=== PATIENT | female | born 1995 | race Caucasian/White ===

== ENCOUNTER → 2016-11-19 | Outpatient (CLI) | payer MEDICAID, OTHER ==
[~2016-11-19] MED LIST: PREN-53 PO
--- NOTE | 2016-11-19 13:47 | Diagnostic Imaging Report ---
EXAMINATION: OB ultrasound. INDICATION: survey. FINDINGS: The heart rate is 152 beats per minute. The placenta is posterior. There is no placenta previa. The posterior fossa appear unremarkable. No ventriculomegaly. The four-chamber view, the cord insertion, the bladder, two umbilical arteries, and the kidneys appear unremarkable. The spine is not well seen. The stomach is not well seen due to position. The growth parameters are all around 20 weeks and 5 days. This is compatible with gestational age of 21 weeks and 1 day based on the first trimester ultrasound dating. IMPRESSION: Followup study within 2-3 weeks is recommended to reevaluate stomach and spine, not well seen due to position. Dictated by: Dictated on workstation # [id number]
== END ==
LOC: RAD 10:40
PROVIDERS: ATTEND Family Medicine
DX: Z34.02 Encounter for supervision of normal first pregnancy, second trimester (principal)
CPT/HCPCS: 76805

== ENCOUNTER → 2016-12-16 | Outpatient (CLI) | payer MEDICAID ==
--- OUTSIDE RECORDS SUMMARY | 2016-12-16 11:15 | XMS REPORT | Continuity of Care Document ---
Author Author [facility] Address Unknown Phone Unavailable Allergies Active Description Code Type Severity Reaction Onset Reported/Identified Relationship to Patient Clinical Status Yes No Known Drug Allergies [id number] Drug Allergy Unknown N/ A 07/24/2015 Medications Problems Date Dx Coded Attending Type Code Diagnosis Diagnosed By 01/16/2015 STU GODINEZ DO 300.4 DYSTHYMIC DISORDER 07/24/2015 NELSON MAY DO Ot Z03.89 ENCNTR FOR OBS FOR OTH SUSPECTED DISEASE 09/05/2016 KIM NAVARRO MD Ot Z34.91 ENCNTR FOR SUPRVSN OF NORMAL PREG, UNSP, 09/05/2016 KIM NAVARRO MD Ot Z3A.09 9 WEEKS GESTATION OF 09/06/2016 NELSON MAY DO Ot Z03.89 ENCNTR FOR OBS FOR OTH SUSPECTED DISEASE 11/19/2016 KIM NAVARRO MD Ot Z34.91 ENCNTR FOR SUPRVSN OF NORMAL PREG, UNSP, 11/19/2016 KIM NAVARRO MD Ot Z3A.09 9 WEEKS GESTATION OF 11/19/2016 KIM NAVARRO MD Ot Z34.91 ENCNTR FOR SUPRVSN OF NORMAL PREG, UNSP, 11/19/2016 KIM NAVARRO MD Ot Z3A.09 9 WEEKS GESTATION OF 11/20/2016 KIM NAVARRO MD Ot Z34.02 ENCNTR FOR SUPRVSN OF NORMAL FIRST PREG, Procedures Results Encounters ACCT No. Visit Date/Time Discharge Status Pt. Type Provider Facility Loc./Unit Complaint [id number] 01/16/2015 15:27:00 01/16/2015 23: 59:59 CLS Outpatient STU GODINEZ DO
--- NOTE | 2016-12-16 15:28 | Diagnostic Imaging Report ---
EXAMINATION: OB ultrasound followup. INDICATION: Followup spine and stomach. FINDINGS: The heart rate is 179 beats per minute. The cervix is 3.7 cm in length and is closed. The spine is seen at this time and appears within normal limits. The stomach appears within normal limits. IMPRESSION: Completed survey. Dictated by: Dictated on workstation # [id number]
== END ==
LOC: RAD 11:12
PROVIDERS: ATTEND Family Medicine
DX: Z34.02 Encounter for supervision of normal first pregnancy, second trimester (principal)
CPT/HCPCS: 76816

== ENCOUNTER 2017-01-11 19:26 | Outpatient (CLI) | payer MEDICAID ==
[~2017-01-11] VITALS: Ht 165.1 cm; Wt 80.9 kg
[2017-01-11 19:47] VITALS: BP 128/78
[2017-01-11] MEDS ORDERED: PREN-53 PO (20:27)
--- NOTE | 2017-01-13 10:03 | Physician Query-Final Dx ---
TOBY RICHARD 01/13/17 1003: Clinic Account Progress/Dx Physician Query: Please give diagnosis Date of Service Jan 11, 2017 at 19:26 KIM NAVARRO MD 01/14/17 0924: Clinic Account Progress/Dx DIAGNOSIS: Diagnosis Decreased movement Third trimester Reactive NST TOBY RICHARD Jan 13, 2017 10:03 KIM NAVARRO MD Jan 14, 2017 09:24
== END 2017-01-11 20:35 | disposition home or self-care (01) ==
LOC: WSo 19:26 → LDRP 19:26 → WSo 20:35
PROVIDERS: ATTEND Family Medicine
DX: O36.8130 Decreased fetal movements, third trimester, not applicable or unspecified (principal); Z3A.28 28 weeks gestation of pregnancy
CPT/HCPCS: 99213

== ENCOUNTER 2017-02-17 19:44 | Outpatient (CLI) | payer MEDICAID ==
[~2017-02-17] VITALS: Ht 165.1 cm; Wt 86.2 kg
[2017-02-17 20:00] VITALS: BP 130/84
[2017-02-17] MEDS ORDERED: RANI25VI2 IJ (20:04)
[2017-02-17 20:15] LABS: BILIRUBIN,URINE NEGATIVE (NEGATIVE); KETONES,URINE NEGATIVE (NEGATIVE); LEUKOCYTE ESTERASE ,URINE 1+ (NEGATIVE); NITRITE,URINE NEGATIVE (NEGATIVE); PH,URINE 7 (5-9); PROTEIN,URINE NEGATIVE (NEGATIVE); UROBILINOGEN,URINE NORMAL (NORMAL)
[2017-02-17] MEDS ORDERED: ACETAMINOPHEN 500 MG TAB (TYLENOL) PO ONE (21:00)
--- NOTE | 2017-02-18 08:56 | Physician Query-Final Dx ---
CEM MILLS 02/18/17 0856: Clinic Account Progress/Dx Physician Query: Please give diagnosis Date of Service February 17, 2017 at 19:44 GRICELDA MERCEDES MD 02/20/17 2142: Clinic Account Progress/Dx DIAGNOSIS: Diagnosis Contractions CEM MILLS February 18, 2017 08:56 GRICELDA MERCEDES MD February 20, 2017 21:42
== END 2017-02-17 22:05 | disposition home or self-care (01) ==
LOC: LDRP 19:44 → WSo 19:44
PROVIDERS: ATTEND Family Medicine
DX: O60.03 Preterm labor without delivery, third trimester (principal); Z3A.34 34 weeks gestation of pregnancy
CPT/HCPCS: 81000; 87081; 99213

== ENCOUNTER 2017-03-06 23:31 | Outpatient (CLI) | payer MEDICAID ==
[~2017-03-06] VITALS: Ht 165.1 cm; Wt 87.7 kg
[~2017-03-06 23:31] MED LIST changes: +RANI25VI2 IJ
[2017-03-06 23:52] VITALS: BP 117/72
[2017-03-07] MEDS ORDERED: ACETAMINOPHEN 500 MG TAB (TYLENOL) ONE (02:12)
[2017-03-07] MEDS ORDERED: ACETAMINOPHEN 500 MG TAB (TYLENOL) PO PRN (02:30)
[2017-03-07 03:47] VITALS: BP 125/78
--- NOTE | 2017-03-07 15:40 | Physician Query-Final Dx ---
TOBY RICHARD 03/07/17 1540: Clinic Account Progress/Dx Physician Query: Please give diagnosis Date of Service Mar 06, 2017 at 23:31 KIM NAVARRO MD 03/07/17 2116: Clinic Account Progress/Dx DIAGNOSIS: Diagnosis 37 weeks gestation Contractions, no cervical change R/O rupture of membranes- amnioswab negative TOBY RICHARD Mar 07, 2017 15:40 KIM NAVARRO MD Mar 07, 2017 21:16
== END 2017-03-07 05:35 | disposition home or self-care (01) ==
LOC: WSo 23:31 → LDRP 23:32 → WSo 03-07 05:35
PROVIDERS: ATTEND Family Medicine
DX: O47.1 False labor at or after 37 completed weeks of gestation (principal); Z3A.37 37 weeks gestation of pregnancy
CPT/HCPCS: 99214

== ENCOUNTER 2017-03-11 13:08 | Outpatient (CLI) | payer MEDICAID ==
[~2017-03-11] VITALS: Ht 165.1 cm; Wt 86.6 kg
[2017-03-11 13:49] LABS: BILIRUBIN,URINE NEGATIVE (NEGATIVE); KETONES,URINE 3+ (NEGATIVE); LEUKOCYTE ESTERASE ,URINE 3+ (NEGATIVE); NITRITE,URINE NEGATIVE (NEGATIVE); PH,URINE 7 (5-9); PROTEIN,URINE 2+ (NEGATIVE); UROBILINOGEN,URINE NORMAL (NORMAL)
[2017-03-11 14:00] LABS: SQUAMOUS EPITHELIAL CELL,UR 25-50 /HPF; WBC,URINE 25-50 /HPF
[2017-03-11] MEDS ORDERED: FAMOTIDINE 20MG/2ML IV (PEPCID) IVP ONE (14:30)
[2017-03-11] MEDS ORDERED: NS IV 1000 ML 1,000 ML IV ONE (14:30)
[2017-03-11] MEDS ORDERED: ONDANSETRON 4 MG/2 ML (SDV) Z0FRAN IVP PRN (14:30)
[2017-03-11 14:58] LABS: BASOPHILS % (AUTO) 0 % (0-10); EOSINOPHILS % (AUTO) 0 % (0-10); LYMPHOCYTES # (AUTO) 1.1 X 10^3 (1.0-4.0); LYMPHOCYTES % (AUTO) 10 % (12-44); MEAN CORPUSCULAR HEMOGLOBIN 29 PG (25-34); MEAN CORPUSCULAR HGB CONC 32 G/DL (32-36); MEAN CORPUSCULAR VOLUME 90 FL (80-99); MEAN PLATELET VOLUME 10.3 FL (7.4-10.4); MONOCYTES # (AUTO) 0.9 X 10^3 (0.0-1.0); MONOCYTES % (AUTO) 8 % (0-12); NEUTROPHILS # (AUTO) 8.9 X 10^3 (1.8-7.8); NEUTROPHILS % (AUTO) 82 % (42-75); PLATELET COUNT 242 10^3/uL (130-400); RED BLOOD COUNT 3.52 10^6/uL (4.35-5.85); RED CELL DISTRIBUTION WIDTH 13.4 % (10.0-14.5); WHITE BLOOD COUNT 10.9 10^3/uL (4.3-11.0)
[2017-03-11 15:20] LABS: ALANINE AMINOTRANSFERASE 11 U/L (0-55); ALBUMIN 3.3 G/DL (3.2-4.5); ANION GAP 12 MMOL/L (5-14); ASPARTATE AMINO TRANSFERASE 12 U/L (5-34); BILIRUBIN,TOTAL 0.6 MG/DL (0.1-1.0); BLOOD UREA NITROGEN 9 MG/DL (7-18); BUN/CREATININE RATIO 14; CARBON DIOXIDE 21 MMOL/L (21-32); CHLORIDE 106 MMOL/L (98-107); CREATININE SERUM 0.63 MG/DL (0.60-1.30); GFR ESTIMATED > 60; GLUCOSE 83 MG/DL (70-105); POTASSIUM 3.6 MMOL/L (3.6-5.0); SODIUM 139 MMOL/L (135-145); TOTAL PROTEIN 6.3 G/DL (6.4-8.2)
--- NOTE | 2017-03-12 08:08 | Physician Query-Final Dx ---
TOBY RICHARD 03/12/17 0808: Clinic Account Progress/Dx Physician Query: Please give diagnosis Date of Service Mar 11, 2017 at 13:08 KIM NAVARRO MD 03/12/17 0922: Clinic Account Progress/Dx DIAGNOSIS: Diagnosis Gastroenteritis Term intrauterine at 37 weeks TOBY RICHARD Mar 12, 2017 08:08 KIM NAVARRO MD Mar 12, 2017 09:22
== END 2017-03-11 16:24 | disposition home or self-care (01) ==
LOC: LDRP 13:08 → WSo 13:08
PROVIDERS: ATTEND Family Medicine
DX: O99.89 Other specified diseases and conditions complicating pregnancy, childbirth and the puerperium (principal); K52.9 Noninfective gastroenteritis and colitis, unspecified; Z3A.37 37 weeks gestation of pregnancy
CPT/HCPCS: 36415; 80053; 81000; 85025; 87088; 96361; 96374; 96375; 99213

== ENCOUNTER 2017-03-31 19:31 | Inpatient (IN) | payer MEDICAID ==
[~2017-03-31] VITALS: Ht 165.1 cm; Wt 88.9 kg
[2017-03-31] MEDS ORDERED: LACTATED RINGERS 1,000 ML IV ONE (19:54)
[2017-03-31] MEDS ORDERED: LACTATED RINGERS 1,000 ML IV SCH (19:55)
[2017-03-31 19:58] LABS: BASOPHILS % (AUTO) 0 % (0-10); EOSINOPHILS # (AUTO) 0.1 10^3/uL (0.0-0.3); EOSINOPHILS % (AUTO) 1 % (0-10); LYMPHOCYTES # (AUTO) 2.2 X 10^3 (1.0-4.0); LYMPHOCYTES % (AUTO) 18 % (12-44); MEAN CORPUSCULAR HEMOGLOBIN 28 PG (25-34); MEAN CORPUSCULAR HGB CONC 33 G/DL (32-36); MEAN CORPUSCULAR VOLUME 86 FL (80-99); MEAN PLATELET VOLUME 10.5 FL (7.4-10.4); MONOCYTES % (AUTO) 8 % (0-12); NEUTROPHILS % (AUTO) 73 % (42-75); PLATELET COUNT 261 10^3/uL (130-400); RED BLOOD COUNT 3.53 10^6/uL (4.35-5.85); RED CELL DISTRIBUTION WIDTH 14.3 % (10.0-14.5); WHITE BLOOD COUNT 12.3 10^3/uL (4.3-11.0)
[2017-03-31] MEDS ORDERED: MINERAL OIL CONCENTRATE 99.9% 15 ML UDC TOP PRN (20:00)
[2017-03-31 20:03] VITALS: BP 139/88
[2017-03-31] MEDS ORDERED: RANI150T15 PO (20:06)
[2017-03-31] MEDS: D5 LR IV SOLUTION 1,000 ML IV SCH (20:55)
[2017-03-31] MEDS ORDERED: CATHETER FLUSH 10 ML SYR IV SCH (22:00)
[2017-03-31] MEDS: MISOPROSTOL 100 MCG (CYTOTEC) TAB PV SCH (22:00)
[2017-03-31 22:21] LABS: BILIRUBIN,URINE NEGATIVE (NEGATIVE); KETONES,URINE NEGATIVE (NEGATIVE); LEUKOCYTE ESTERASE ,URINE 1+ (NEGATIVE); NITRITE,URINE NEGATIVE (NEGATIVE); PH,URINE 6.5 (5-9); PROTEIN,URINE 1+ (NEGATIVE); UROBILINOGEN,URINE NORMAL (NORMAL)
[2017-03-31 22:28] LABS: CALCIUM OXALATE CRYSTALS,UR FEW /LPF; SQUAMOUS EPITHELIAL CELL,UR 0-2 /HPF; WBC,URINE 0-2 /HPF
[2017-04-01] VITALS (56 sets, daily range): BP systolic 121–166; BP diastolic 63–99
[2017-04-01] MEDS ORDERED: SUFENTA 0.6MCG/ML BUPIVA 0.125 100 ML ONE (00:21)
[2017-04-01] MEDS ORDERED: BUPIVACAINE 0.25% 30 ML (SENSORCAINE) VIAL ONE (00:58)
[2017-04-01] MEDS ORDERED: LACTATED RINGERS 1,000 ML IV ONE (01:26)
[2017-04-01] MEDS ORDERED: ONDANSETRON 4 MG/2 ML (SDV) Z0FRAN IV PRN (01:30)
[2017-04-01] MEDS ORDERED: NALOXONE 0.4 MG/ML 1 ML (NARCAN) VIAL IV PRN (01:30)
[2017-04-01] MEDS ORDERED: EPIDURAL (SUFENTA 0.6MCG/ML BUPIVA 0.125%) 100 ML BAG EPI SCH (01:30)
[2017-04-01] MEDS: MISOPROSTOL 100 MCG (CYTOTEC) TAB PV SCH ×3 (02:34→11:23)
[2017-04-01] MEDS: D5 LR IV SOLUTION 1,000 ML IV SCH (04:35)
[2017-04-01] MEDS ORDERED: OXYTOCIN/NORMAL SALINE 500 ML IV ONE (06:20)
[2017-04-01] MEDS ORDERED: LIDOCAINE/EPI 1%-1:200,000 (XYLOCAINE) 30 ML VIAL ONE (06:21)
--- NOTE | 2017-04-01 07:30 | History & Physical-OB ---
OB - Chief Complaint & HPI Date/Time Date of Admission: Date of Admission: Mar 31, 2017 at 7:31 pm Time Seen by Provider: 07:24 Chief Complaint/History OB-Reason for Admission/Chief: Induction of Labor Hx : 1 Hx Para: 0 Expected Date of Delivery: Mar 26, 2017 Gestational Age in Weeks: 40 Gestational Age in Days: 6 Indication for induction: post dates History of Labs O negative, antibody neg, RI, HepB/RPR/HIV neg, GC/chlamydia neg. 1 hour glucola normal. GBS neg. Allergies and Home Medications Allergies Coded Allergies: No Known Drug Allergies (Unverified , 07/24/15) Home Medications Ranitidine HCl 150 Mg Tablet, 150 MG PO DAILY, (Reported) OB - History Hx of Present Care: Yes Ultrasounds: Normal mid trimester US Obstetrical Complications: None Information Induced Hypertension: No Maternal Gestational Diabetes: No Hemorrhage: No Obstetrical History Hx : 1 Hx Para: 0 Hx # Term Pregnancies: 0 Hx # Pregnancies: 0 Number of Living Children: 0 Hx Termination: No Hx Multiple Gestation: No Hx Ectopic : No Hx Stillbirth: No Hx Complication: No Hx Induced Hypertens: No Hx Maternal Gestational Diabet: No Hx Hemorrhage: No Delivery History Hx Dystocia: No Hx Forceps Assisted Delivery: No Hx Vacuum Extraction Assisted: No Hx Placenta Abnormality: No Hx Distress: No Hx Large For Gestational Age I: No Hx Small for Gestational Age I: No Hx Section: No Hx Vaginal Delivery Post C-Sec: No Hx Blood Disorders: No Adverse Rxn to Tranfusion: No Patient Past Medical History PMHx: Mild intermittent asthma PSurgHx: None Social History/Family History HIV/AIDS: No Recent Infectious Disease Expo: No Sexually Transmitted Disease: No Alcohol Use: Denies Use Recreational Drug Use: No Smoking Cessation: Never smoker Immunizations Hepatitis A: No Hepatitis B: Yes Tetanus Booster (TDap): Less than 5yrs Rubella: immune RPR/VDRL: Negative GBS Status: Negative HBsAG: Negative OB - Admission Exam Physical Exam Date Seen by Provider: Apr 01, 2017 Time Seen by Provider: 07:27 Vitals: Vital Signs 04/01/17 04/01/17 04:45 06:00 Temp 99.5 Pulse 76 Resp 18 B/P (MAP) 121/80 Pulse Ox 99 O2 Delivery Room Air HEENT: NCAT Abdomen: Gravid Extremities: Normal Cervical Dilatation: 10cm Effacement: 100% Station: 0 Membranes: Ruptured Amniotic Fluid: Thin Meconium Heart Rate: 150's Decelerations: Late Decelarations (late decelerations with several contractions , not every contraction) Short Term Variability: Present Chcf Variability: Average (6-25) Contractions on Admission: None Labs Laboratory Tests Test 03/31/17 19:05 03/31/17 19:35 Range/Units Urine Color YELLOW Urine Clarity SLIGHTLY CLOUDY Urine pH 6.5 5-9 Urine Specific [place] 1.015 L 1.016-1.022 Urine Protein 1+ H NEGATIVE Urine Glucose (UA) NEGATIVE NEGATIVE Urine Ketones NEGATIVE NEGATIVE Urine Nitrite NEGATIVE NEGATIVE Urine Bilirubin NEGATIVE NEGATIVE Urine Urobilinogen NORMAL NORMAL MG/DL Urine Leukocyte Esterase 1+ H NEGATIVE Urine RBC (Auto) NEGATIVE NEGATIVE Urine RBC NONE /HPF Urine WBC 0-2 /HPF Urine Squamous Epithelial Cells 0-2 /HPF Urine Crystals PRESENT H /LPF Urine Calcium Oxalate Crystals FEW H /LPF Urine Amorphous Sediment FEW ESEQUIEL URATES H /LPF Urine Bacteria MODERATE H /HPF Urine Casts NONE /LPF Urine Mucus NEGATIVE /LPF Urine Culture Indicated NO White Blood Count 12.3 H 4.3-11.0 10^3/uL Red Blood Count 3.53 L 4.35-5.85 10^6/uL Hemoglobin 9.9 L 11.5-16.0 G/DL Hematocrit 30 L 35-52 % Mean Corpuscular Volume 86 80-99 FL Mean Corpuscular Hemoglobin 28 25-34 PG Mean Corpuscular Hemoglobin Concent 33 32-36 G/DL Red Cell Distribution Width 14.3 10.0-14.5 % Platelet Count 261 130-400 10^3/uL Mean Platelet Volume 10.5 H 7.4-10.4 FL Neutrophils (%) (Auto) 73 42-75 % Lymphocytes (%) (Auto) 18 12-44 % Monocytes (%) (Auto) 8 0-12 % Eosinophils (%) (Auto) 1 0-10 % Basophils (%) (Auto) 0 0-10 % Neutrophils # (Auto) 9.0 H 1.8-7.8 X 10^3 Lymphocytes # (Auto) 2.2 1.0-4.0 X 10^3 Monocytes # (Auto) 1.0 0.0-1.0 X 10^3 Eosinophils # (Auto) 0.1 0.0-0.3 10^3/uL Basophils # (Auto) 0.0 0.0-0.1 10^3/uL OB - Assessment/Plan/Diagnosis Assessment Assessment: induction of labor Plan Plan: Induction Induction Method: per Misoprostol Protocol Other Plan G1 at 40w6d, O negative, RI, GBS neg. IOL for postdates with misoprostol due to ford score on arrival of 4, progressed through labor after one dose and is complete this morning, meconium stained fluid and occasional late decelerations but at complete dilation, anticipate vaginal delivery. Copy Copies To 1: KIM NAVARRO MD, BETHANY N MD Apr 01, 2017 7:30 am
[2017-04-01] MEDS ORDERED: LIDOCAINE/EPI 1%-1:200,000 (XYLOCAINE) 30 ML VIAL INJ ONE (08:27)
[2017-04-01] MEDS ORDERED: OXYTOCIN/NORMAL SALINE 500 ML IV SCH (09:00)
--- NOTE | 2017-04-01 09:00 | OB Labor & Delivery Record ---
Vag Delivery Note Vag Delivery Note Date of Delivery: 04/01/17 Preoperative Diagnosis: Carri Fuentes is a (22 /Para 1 / 0, Gestational Age (wks)40with 6 days Postoperative Diagnosis: Same Surgeon: KIM NAVARRO Director Of Clinical Services: Radha Steiner, MS3 Anesthesia: epidural Delivery Type: spontaneous vaginal delivery Findings: Viable male infant, apgars 8/8, weight 8#1 Lacerations: first degree perineal, bilateral periurethral Intact placenta with 3 vessel cord. No nuchal cord, body cord or shoulder dystocia Estimated Blood Loss: 200 ml Complications: None Condition: Stable Description of Procedure: The patient is a 22 yo G1 at 40w6d who presented for IOL due to postdates. She was admitted and informed consent was obtained. Her labor course was remarkable for meconium stained fluid. She progressed to complete dilatation and began to push. She was then set up for delivery. The infant's head was delivered atraumatically in the CHRIS position. The shoulders and remainder of the 's body were then delivered without difficulty. Upon delivery the infant cried immediately and was placed on maternal abdomen. The cord was doubly clamped and cut and the infant was handed off to the pediatric staff. An intact placenta with 3-vessel cord delivered via [place] and there was found to be minimal bleeding.~ Vigorous fundal massage was performed and the fundus was found to be firm. IV oxytocin was given. Examination of the vagina and perineum revealed a first degree perineal laceration and bilateral periurethral lacerations repaired in simple running fashion with 3-0 rapide suture. Following the repair , sponge, instrument and needle counts were correct. Mom and baby were both in stable condition in the labor suite. Vitals - Labs Vital Signs - I&O Vital Signs Date Time Temp Pulse Resp B/P (MAP) Pulse Ox O2 Delivery O2 Flow Rate FiO2 04/01/17 07:00 81 18 125/70 99 Room Air 04/01/17 06:45 85 18 132/90 98 Room Air 04/01/17 06:30 82 18 135/83 99 Room Air 04/01/17 06:15 99.6 82 18 138/92 99 Room Air 04/01/17 06:00 76 18 121/80 99 Room Air 04/01/17 05:45 78 18 129/83 99 Room Air 04/01/17 05:30 73 18 126/76 98 Room Air 04/01/17 05:15 72 18 128/76 98 Room Air 04/01/17 05:00 75 18 123/83 98 Room Air 04/01/17 04:45 99.5 81 18 128/87 98 Room Air 04/01/17 04:30 74 18 126/80 97 Room Air 04/01/17 04:15 80 18 123/87 98 Room Air 04/01/17 04:00 74 18 130/88 97 Room Air 04/01/17 03:45 72 18 126/84 99 Room Air 04/01/17 03:30 78 18 130/84 99 Room Air 04/01/17 03:15 69 18 134/83 98 Room Air 04/01/17 03:00 73 18 98 Room Air 04/01/17 02:45 83 18 144/92 99 Room Air 04/01/17 02:21 87 18 147/82 Room Air 04/01/17 02:19 87 18 136/86 98 Room Air 04/01/17 02:15 84 18 135/89 97 Room Air 04/01/17 02:13 88 18 130/78 Room Air 04/01/17 02:10 76 18 139/79 99 Room Air 04/01/17 02:07 76 18 130/84 Room Air 04/01/17 02:04 76 18 130/86 98 Room Air 04/01/17 02:00 80 18 129/85 99 Room Air 04/01/17 01:58 77 18 125/86 Room Air 04/01/17 01:55 74 18 137/86 99 Room Air 04/01/17 01:52 74 18 133/90 Room Air 04/01/17 01:49 70 18 143/93 99 Room Air 04/01/17 01:45 Room Air 04/01/17 01:44 70 18 140/90 98 Room Air 04/01/17 01:42 76 18 140/99 Room Air 04/01/17 01:39 77 18 150/85 100 Room Air 04/01/17 01:36 75 18 150/80 Room Air 04/01/17 01:33 76 18 143/84 100 Room Air 04/01/17 01:30 73 20 143/84 99 Room Air 04/01/17 01:27 75 20 146/91 Room Air 04/01/17 01:24 78 20 144/85 99 Room Air 04/01/17 01:21 79 20 140/85 Room Air 04/01/17 01:20 84 20 139/78 99 Room Air 04/01/17 01:15 78 20 137/95 Room Air 04/01/17 01:12 83 20 142/89 100 Room Air 04/01/17 00:56 100.4 75 20 166/91 Room Air 03/31/17 20:03 98.8 88 18 139/88 Room Air I & O 04/01/17 07:00 Intake Total 3000 ml Balance 3000 ml Labs Laboratory Tests 03/31/17 19:05: Urine Color YELLOW, Urine Clarity SLIGHTLY CLOUDY, Urine pH 6.5, Urine Specific [place] 1.015L, Urine Protein 1+H, Urine Glucose (UA) NEGATIVE, Urine Ketones NEGATIVE, Urine Nitrite NEGATIVE, Urine Bilirubin NEGATIVE, Urine Urobilinogen NORMAL, Urine Leukocyte Esterase 1+H, Urine RBC (Auto) NEGATIVE, Urine RBC NONE , Urine WBC 0-2, Urine Squamous Epithelial Cells 0-2, Urine Crystals PRESENTH, Urine Calcium Oxalate Crystals FEWH, Urine Amorphous Sediment FEW ESEQUIEL URATESH, Urine Bacteria MODERATEH, Urine Casts NONE, Urine Mucus NEGATIVE, Urine Culture Indicated NO 03/31/17 19:35: White Blood Count 12.3H, Red Blood Count 3.53L, Hemoglobin 9.9L, Hematocrit 30L , Mean Corpuscular Volume 86, Mean Corpuscular Hemoglobin 28, Mean Corpuscular Hemoglobin Concent 33, Red Cell Distribution Width 14.3, Platelet Count 261, Mean Platelet Volume 10.5H, Neutrophils (%) (Auto) 73, Lymphocytes (%) (Auto) 18 , Monocytes (%) (Auto) 8, Eosinophils (%) (Auto) 1, Basophils (%) (Auto) 0, Neutrophils # (Auto) 9.0H, Lymphocytes # (Auto) 2.2, Monocytes # (Auto) 1.0, Eosinophils # (Auto) 0.1, Basophils # (Auto) 0.0 KIM NAVARRO MD Apr 01, 2017 9:00 am
[2017-04-01] MEDS: BENZOCAINE/MENTHOL (DERMOPLAST) 56 ML CAN TP PRN (09:46)
[2017-04-01] MEDS: WITCH HAZEL(TUCKS) 40 EA JAR TOP PRN (09:46)
[2017-04-01] MEDS: IBUPROFEN 600 MG (MOTRIN) TAB PO SCH ×3 (09:46→21:28)
[2017-04-01] MEDS ORDERED: CATHETER FLUSH 10 ML SYR IV SCH (14:00)
[2017-04-01] MEDS: FERROUS SULF 325 MG (IRON) TAB PO SCH (14:45)
[2017-04-02 00:30] VITALS: BP 128/93
[2017-04-02 03:50] VITALS: BP 131/87
[2017-04-02] MEDS: IBUPROFEN 600 MG (MOTRIN) TAB PO SCH ×4 (03:50→20:42)
[2017-04-02] MEDS ORDERED: PRENATAL VITAMIN 1 EA TAB PO SCH (07:00)
[2017-04-02 07:11] LABS: BASOPHILS % (AUTO) 0 % (0-10); EOSINOPHILS # (AUTO) 0.2 10^3/uL (0.0-0.3); EOSINOPHILS % (AUTO) 1 % (0-10); LYMPHOCYTES # (AUTO) 3.9 X 10^3 (1.0-4.0); LYMPHOCYTES % (AUTO) 28 % (12-44); MEAN CORPUSCULAR HEMOGLOBIN 28 PG (25-34); MEAN CORPUSCULAR HGB CONC 32 G/DL (32-36); MEAN CORPUSCULAR VOLUME 88 FL (80-99); MEAN PLATELET VOLUME 10.1 FL (7.4-10.4); MONOCYTES % (AUTO) 7 % (0-12); NEUTROPHILS # (AUTO) 9.1 X 10^3 (1.8-7.8); NEUTROPHILS % (AUTO) 64 % (42-75); PLATELET COUNT 249 10^3/uL (130-400); RED BLOOD COUNT 3.55 10^6/uL (4.35-5.85); RED CELL DISTRIBUTION WIDTH 14.7 % (10.0-14.5); WHITE BLOOD COUNT 14.2 10^3/uL (4.3-11.0)
[2017-04-02 07:46] LABS: BAND NEUTROPHILS 3 %; NEUTROPHILS % (MANUAL) 56 %
[2017-04-02 07:47] LABS: ANISOCYTOSIS SLIGHT; BASOPHILS % (MANUAL) 1 %; EOSINOPHILS % (MANUAL) 0 %; LYMPHOCYTES % (MANUAL) 34 %
[2017-04-02 08:00] VITALS: BP 111/76
[2017-04-02] MEDS: FERROUS SULF 325 MG (IRON) TAB PO SCH (08:57)
--- NOTE | 2017-04-02 10:41 | Anesthesia-Regional Post-Op ---
Regional Patient Condition Mental Status: Alert, Oriented x3 Circulation: Same as Pre-Op Headache: Absent Sensation: Full Recovery Motor Block: Absent Post Op Complications Complications None Follow Up Care/Instructions Patient Instructions None needed. Anesthesia/Patient Condition Patient is doing well, no complaints, stable vital signs, no apparent adverse anesthesia problems. No complications reported per nursing. BEVERLY DOCKERY CRNA Apr 02, 2017 10:41
[2017-04-02 15:00] VITALS: BP 119/77
[2017-04-02] MEDS: WITCH HAZEL(TUCKS) 40 EA JAR TOP PRN (18:32)
[2017-04-02 20:46] VITALS: BP 112/72
[2017-04-03] MEDS: IBUPROFEN 600 MG (MOTRIN) TAB PO SCH ×2 (03:28→11:17)
[2017-04-03 03:29] VITALS: BP 132/91
[2017-04-03 08:50] VITALS: BP 120/77
--- NOTE | 2017-04-03 09:47 | Progress Note (SOAP) ---
Subjective Subjective/Events-last exam Pain well controlled on PO meds. Doing well. No concerns Review of Systems Date Seen by Provider: Apr 02, 2017 Time Seen by Provider: 09:15 Objective Exam Last Set of Vital Signs Vital Signs Date Time Temp Pulse Resp B/P (MAP) Pulse Ox O2 Delivery O2 Flow Rate FiO2 04/03/17 08:50 97.6 73 16 120/77 Room Air 04/02/17 20:46 95 04/01/17 07:30 15.00 Capillary Refill : General: Alert, Oriented X3, Cooperative, No Acute Distress Lungs: Clear to Auscultation, Normal Air Movement Heart: Regular Rate, No Murmurs Abdomen: Normal Bowel Sounds, Soft, No Tenderness, Other (fundus below umbilicus) Extremities: No Edema, No Tenderness/Swelling Assessment/Plan Assessment/Plan Plan 22 yo s/p PPD#1 - Continue routine post care - Bleeding well controlled - Pain well controlled on PO medications - Bottle feeding - Plan to d/c home tomorrow Diagnosis/Problems: Clinical Quality Measures DVT/VTE Risk/Contraindication: Risk Factor Score Per Nursin RFS Level Per Nursing on Admit: 1=Low/No VTE PPX GRICELDA MERCEDES MD Apr 03, 2017 09:47
--- NOTE | 2017-04-03 09:50 | Discharge Summary ---
Diagnosis/Chief Complaint Date of Admission Mar 31, 2017 at 19:31 Date of Discharge 04/03/2017 Admission Diagnosis Admission Diagnosis Induction of Labor for Post dates Discharge Diagnosis Term Delivery of Male infant Chief Complaint/HPI Chief Complaint/HPI IOL for post dates, GBS Neg, RI Discharge Summary-Simple/Stand Discharge Physical Examination Allergies: Coded Allergies: No Known Drug Allergies (Unverified , 07/24/15) Vitals & I&Os Vital Sign - Last 12Hours Date Time Temp Pulse Resp B/P (MAP) Pulse Ox O2 Delivery O2 Flow Rate FiO2 04/03/17 08:50 97.6 73 16 120/77 Room Air 04/02/17 20:46 95 04/01/17 07:30 15.00 General Appearance: Alert, Oriented X3, Cooperative, No Acute Distress Respiratory: Clear to Auscultation, Normal Air Movement Cardiovascular: Regular Rate, No Murmurs Abdominal: Normal Bowel Sounds, Soft, No Tenderness Extremities: No Edema, No Tenderness/Swelling Skin: No Rashes, No Breakdown Neuro: Strength at 5/5 X4 Ext, Sensation Intact, Cranial Nerves 3-12 NL Psych/Mental Status: Mental Status NL, Mood NL Hospital Course See final discharge diagnosis. Discussion & Recommendations 22 yo G1 now P1 delivered term male via . GBS neg. Bottle feeding Will follow up with Dr Lemons in 6 weeks Discharge Condition at discharge Stable Instructions to patient/family Please see electonic discharge instructions given to patient. Discharge Medications Reviewed and agree with Discharge Medication list on patient's Discharge Instruction sheet Clinical Quality Measures DVT/VTE Risk/Contraindication: Risk Factor Score Per Nursin RFS Level Per Nursing on Admit: 1=Low/No VTE PPX Copy Copies To 1: KIM LEMONS MD, HOLLY R MD Apr 03, 2017 09:50
[2017-04-03] MEDS ORDERED: FERR-74 PO (09:52)
[2017-04-03] MEDS ORDERED: IBUP-1773 PO (09:52)
--- NOTE | 2017-04-03 09:54 | Discharge Instructions ---
Discharge Inst-Women's Serv Depart Medications New, Converted or Re-Newed RX: Transmitted to Pharmacy Final Diagnosis Term delivery of Male Iron Deficiency Anemia New Medications: Ferrous Sulfate (Ferrous Sulfate) 325 Mg Tablet 325 MG PO DAILY, #30 TAB Ibuprofen (Ibuprofen) 600 Mg Tablet 600 MG PO Q6H, #60 TAB Continued Medications: Ranitidine HCl (Zantac) 150 Mg Tablet 150 MG PO DAILY, TAB Follow Up/Instructions Goal/Follow Up: Follow up with Dr Lemons in 6 weeks for post visit Activity Activity: Activity as Tolerated Driving Instructions: You May Drive NO SMOKING: NO SMOKING Nothing Inside Vagina: No Douching, No [place], No Tampons Diet Discharge Diet: No Restrictions Symptoms to Report to : Bleeding Excessive, Pain Increased, Fever Over 101 Degrees F, Vaginal Discharge Foul, Shortness of Breath For Any Problems or Questions: Contact Your Physician Skin/Wound Care Bathing Instructions: Shower Copies To 1: KIM LEMONS MD, HOLLY R MD Apr 03, 2017 09:54
[2017-04-03] MEDS: BENZOCAINE/MENTHOL (DERMOPLAST) 56 ML CAN TP PRN (11:19)
== END 2017-04-03 12:25 | disposition home or self-care (01) | DRG 775 ==
LOC: LDRP 19:31
PROVIDERS: ADMIT Family Medicine; ATTEND Family Medicine
PROC: 10E0XZZ Delivery of Products of Conception, External Approach (ICD-10-PCS; principal; 2017-04-01)
PROC: 0HQ9XZZ Repair Perineum Skin, External Approach (ICD-10-PCS; 2017-04-01)
DX: O48.0 Post-term pregnancy (principal); O99.513 Diseases of the respiratory system complicating pregnancy, third trimester; J45.909 Unspecified asthma, uncomplicated; O76 Abnormality in fetal heart rate and rhythm complicating labor and delivery; O77.0 Labor and delivery complicated by meconium in amniotic fluid; O70.0 First degree perineal laceration during delivery; Z3A.40 40 weeks gestation of pregnancy; Z37.0 Single live birth
CPT/HCPCS: 36415; 81000; 83033; 85007; 85025; 85027; 86850; 86900; 86901